=== PATIENT | male | born 1935 | race Caucasian/White ===

== ENCOUNTER 2019-04-30 14:30 | Emergency (ER) | payer MEDICARE, MEDICAID ==
[~2019-04-30] VITALS: Ht 172.7 cm; Wt 88.2 kg
[~2019-04-30 14:30] MED LIST: NOCURR
[2019-04-30] MEDS ORDERED: METF-960 PO (14:42)
[2019-04-30] MEDS ORDERED: [UNRECOGNIZED DRUG - REMARK] IM (14:42)
[2019-04-30 14:52] LABS: GLUCOSE,POINT OF CARE 192 MG/DL (70-110)
[2019-04-30 15:45] VITALS: BP 144/77
== END 2019-04-30 16:50 | disposition home or self-care (01) ==
LOC: EMS 14:31
DX: S81.802A Unspecified open wound, left lower leg, initial encounter (principal); E11.9 Type 2 diabetes mellitus without complications; Z79.4 Long term (current) use of insulin; Z79.84 Long term (current) use of oral hypoglycemic drugs; X58.XXXA Exposure to other specified factors, initial encounter; Y93.89 Activity, other specified; Y92.89 Other specified places as the place of occurrence of the external cause; Y99.8 Other external cause status

== ENCOUNTER 2022-02-16 15:16 | Emergency (ER) | payer MEDICARE, MEDICAID ==
[~2022-02-16] VITALS: Ht 172.7 cm; Wt 72.7 kg
[~2022-02-16 15:16] MED LIST changes: +METF-1211 PO; -NOCURR; +[UNRECOGNIZED DRUG - REMARK] IM
[2022-02-16] MEDS ORDERED: ALLO-97 PO (15:50)
[2022-02-16] MEDS ORDERED: EMPA25TA3 PO (15:50)
[2022-02-16] MEDS ORDERED: ATOR40TA28 PO (15:50)
[2022-02-16 18:15] VITALS: BP 125/64
[2022-02-16] MEDS ORDERED: IBUPROFEN 400 MG TABLET PO ONE (18:15)
[2022-02-16] MEDS ORDERED: GABAPENTIN 100 MG CAPSULE PO ONE (18:15)
== END 2022-02-16 20:16 | disposition home or self-care (01) ==
LOC: EMS 15:36
DX: G57.92 Unspecified mononeuropathy of left lower limb (principal); E11.9 Type 2 diabetes mellitus without complications; E78.00 Pure hypercholesterolemia, unspecified
CPT/HCPCS: 82962; 99283